=== PATIENT | female | born 1990 | race Two or more races ===

== ENCOUNTER 2023-02-19 08:29 | Outpatient (CLI) | payer OTHER | END 2023-02-19 08:38 | disposition home or self-care (01) | LOC: NUCLEAR 08:29 | PROVIDERS: ATTEND Internal Medicine Hematology & Oncology | DX: C53.9 Malignant neoplasm of cervix uteri, unspecified (principal); R74.01 Elevation of levels of liver transaminase levels ==

== ENCOUNTER 2023-06-12 07:59 | Outpatient (CLI) | payer OTHER | END 2023-06-12 08:25 | disposition home or self-care (01) | LOC: RX STUDY 07:59 | PROVIDERS: ATTEND Surgery | DX: R10.13 Epigastric pain (principal); K21.9 Gastro-esophageal reflux disease without esophagitis ==